=== PATIENT | female | born 1990 | race American Indian/Alaskan Native ===

== ENCOUNTER 2017-06-23 11:37 | Emergency (ER) | payer MEDICAID ==
[2017-06-23 11:45] VITALS: BP 148/82
[2017-06-23] MEDS ORDERED: MOTRIN PO ONE (13:24)
[2017-06-23] MEDS ORDERED: LIDOCAINE VISCOUS 2% PO ONE (13:24)
--- NOTE | 2017-06-23 13:28 | Emergency Department Report ---
ED ENT HPI - General Chief complaint: Sore Throat Stated complaint: SWOLLEN GLANDS Time Seen by Provider: 06/23/17 13:24 Source: patient Mode of arrival: Ambulatory Limitations: No Limitations - History of Present Illness Initial comments: This is a 26-year-old female nontoxic, well nourished in appearance, no acute signs of distress presents to the ED with c/o of sore throat 3 days. Patient denies any facial swelling. She denies any drooling, difficult breathing, fever or chills, nausea, vomiting, chest pain or shortness of breath. Patient denies any allergies or significant past medical history. MD complaint: sore throat -: days(s) (3) Location: throat Severity: mild Severity scale (0 -10): 8 Quality: aching Consistency: constant Improves with: none Worsens with: swallowing Associated Symptoms: pain with swallowing, sore throat. denies: fever, cough, gum swelling, toothache, tinnitus, hearing loss, discharge from ear, rhinorrhea - Related Data Home Medications Medication Instructions Recorded Confirmed Last Taken Ferrous Sulfate 1 tab PO DAILY 03/29/15 03/29/15 03/28/15 18:00 Previous Rx's Medication Instructions Recorded Last Taken Type Ibuprofen [Motrin 800 MG tab] 800 mg PO Q8HR PRN #30 tablet 03/29/15 Unknown Rx oxyCODONE /ACETAMINOPHEN [Percocet 1 tab PO Q4HR #30 tab 03/29/15 Unknown Rx 5/325] Amoxicillin [Amoxicillin TAB] 875 mg PO BID #20 tablet 06/23/17 Unknown Rx Ibuprofen [Motrin] 600 mg PO Q8H PRN #30 tablet 06/23/17 Unknown Rx Nystas/Diphen/Xyl Visc/Mylanta 15 ml MM Q4H PRN 10 Days ml 06/23/17 Unknown Rx [Magic Mouthwash] Allergies Allergy/AdvReac Type Severity Reaction Status Date / Time No Known Allergies Allergy Verified 03/29/15 09:40 ED Dental HPI - General Chief complaint: Sore Throat Stated complaint: SWOLLEN GLANDS Time Seen by Provider: 06/23/17 13:24 Source: patient Mode of arrival: Ambulatory Limitations: No Limitations - Related Data Home Medications Medication Instructions Recorded Confirmed Last Taken Ferrous Sulfate 1 tab PO DAILY 03/29/15 03/29/15 03/28/15 18:00 Previous Rx's Medication Instructions Recorded Last Taken Type Ibuprofen [Motrin 800 MG tab] 800 mg PO Q8HR PRN #30 tablet 03/29/15 Unknown Rx oxyCODONE /ACETAMINOPHEN [Percocet 1 tab PO Q4HR #30 tab 03/29/15 Unknown Rx 5/325] Amoxicillin [Amoxicillin TAB] 875 mg PO BID #20 tablet 06/23/17 Unknown Rx Ibuprofen [Motrin] 600 mg PO Q8H PRN #30 tablet 06/23/17 Unknown Rx Nystas/Diphen/Xyl Visc/Mylanta 15 ml MM Q4H PRN 10 Days ml 06/23/17 Unknown Rx [Magic Mouthwash] Allergies Allergy/AdvReac Type Severity Reaction Status Date / Time No Known Allergies Allergy Verified 03/29/15 09:40 ED Review of Systems ROS: Stated complaint: SWOLLEN GLANDS Other details as noted in HPI Constitutional: denies: chills, fever Eyes: denies: eye pain, eye discharge, vision change ENT: throat pain. denies: ear pain Respiratory: denies: cough, shortness of breath, wheezing Cardiovascular: denies: chest pain, palpitations Endocrine: no symptoms reported Gastrointestinal: denies: abdominal pain, nausea, diarrhea Genitourinary: denies: urgency, dysuria, discharge Musculoskeletal: denies: back pain, joint swelling, arthralgia Skin: denies: rash, lesions Neurological: denies: headache, weakness, paresthesias Psychiatric: denies: anxiety, depression Hematological/Lymphatic: denies: easy bleeding, easy bruising ED Past Medical Hx - Past Medical History Previous Medical History?: Yes Hx Hypertension: No Hx Congestive Heart Failure: No Hx Diabetes: No Hx Deep Vein Thrombosis: No Hx Renal Disease: No Hx Sickle Cell Disease: No Hx Seizures: No Hx Asthma: No Hx COPD: No Hx HIV: No Additional medical history: childbirth - Surgical History Past Surgical History?: Yes Additional Surgical History: - Social History Smoking Status: Never Smoker Substance Use Type: Non Opiate Pain, Other - Medications Home Medications: Home Medications Medication Instructions Recorded Confirmed Last Taken Type Ferrous Sulfate 1 tab PO DAILY 03/29/15 03/29/15 03/28/15 18:00 History Ibuprofen [Motrin 800 MG tab] 800 mg PO Q8HR PRN #30 tablet 03/29/15 Unknown Rx oxyCODONE /ACETAMINOPHEN [Percocet 1 tab PO Q4HR #30 tab 03/29/15 Unknown Rx 5/325] Amoxicillin [Amoxicillin TAB] 875 mg PO BID #20 tablet 06/23/17 Unknown Rx Ibuprofen [Motrin] 600 mg PO Q8H PRN #30 tablet 06/23/17 Unknown Rx Nystas/Diphen/Xyl Visc/Mylanta 15 ml MM Q4H PRN 10 Days ml 06/23/17 Unknown Rx [Magic Mouthwash] ED Physical Exam - General Limitations: No Limitations General appearance: alert, in no apparent distress - Head Head exam: Present: atraumatic, normocephalic - Eye Eye exam: Present: normal appearance Pupils: Present: normal accommodation - ENT ENT exam: Present: mucous membranes moist, TM's normal bilaterally, normal external ear exam - Expanded ENT Exam Expanded Ear exam: Present: normal external inspection Mouth exam: Present: normal external inspection, tongue normal. Absent: drooling, trismus, muffled voice, tongue elevation, laceration Teeth exam: Present: normal inspection Throat exam: Positive: tonsillar erythema, tonsillomegaly (2+), other (Uvula midline. No abscess or swelling noted. ). Negative: tonsillar exudate, R peritonsillar mass, L peritonsillar mass - Neck Neck exam: Present: normal inspection, full ROM, lymphadenopathy (bilateral tonsillar). Absent: tenderness, meningismus, thyromegaly - Respiratory Respiratory exam: Present: normal lung sounds bilaterally. Absent: respiratory distress, wheezes, rales, rhonchi, stridor, chest wall tenderness, accessory muscle use, decreased breath sounds, prolonged expiratory - Cardiovascular Cardiovascular Exam: Present: regular rate, normal rhythm, normal heart sounds. Absent: bradycardia, tachycardia, irregular rhythm, systolic murmur, diastolic murmur, rubs, gallop - GI/Abdominal GI/Abdominal exam: Present: soft, normal bowel sounds - Extremities Exam Extremities exam: Present: normal inspection, full ROM, normal capillary refill - Back Exam Back exam: Present: normal inspection, full ROM - Neurological Exam Neurological exam: Present: alert, oriented X3, normal gait - Psychiatric Psychiatric exam: Present: normal affect, normal mood - Skin Skin exam: Present: warm, dry, intact, normal color. Absent: rash ED Course Vital Signs 06/23/17 11:42 Temperature 98.2 F Pulse Rate 82 Respiratory 18 Rate Blood Pressure 148/82 O2 Sat by Pulse 99 Oximetry - Reevaluation(s) Reevaluation #1: 06/23/17 13:26 Patient is speaking in full sentences with no signs of distress noted. Critical care attestation.: If time is entered above; I have spent that time in minutes in the direct care of this critically ill patient, excluding procedure time. ED Disposition Clinical Impression: Tonsillitis Pharyngitis Qualifiers: Pharyngitis/tonsillitis etiology: unspecified etiology Qualified Code(s): J02.9 - Acute pharyngitis, unspecified Disposition: - TO HOME OR SELFCARE Is pt being admited?: No Does the pt Need Aspirin: No Condition: Stable Instructions: Tonsillitis (ED), Pharyngitis (ED) Additional Instructions: Follow-up with a primary care doctor in 3-5 days or if symptoms worsen and continue return to emergency room as soon as possible. Prescriptions: Amoxicillin [Amoxicillin TAB] 875 mg PO BID #20 tablet Ibuprofen [Motrin] 600 mg PO Q8H PRN #30 tablet PRN Reason: Pain Nystas/Diphen/Xyl Visc/Mylanta [Magic Mouthwash] 15 ml MM Q4H PRN 10 Days ml PRN Reason: Sore Throat Referrals: PRIMARY CAREMD [Primary Care Provider] - 3-5 Days RAHEL BARLOW MD [Staff Physician] - 3-5 Days [facility] [Outside] - 3-5 Days [facility] [Outside] - 3-5 Days Forms: Work/School Release Form(ED)
--- NOTE | 2017-06-23 13:50 | Emergency Department Report ---
Chief Complaint: Sore Throat Stated Complaint: SWOLLEN GLANDS Time Seen by Provider: 06/23/17 13:24 - HPI History of Present Illness: The patient is 26-year-old female who presents for evaluation of sore throat. The patient reports sore throat for the past 4 days, sore stated in quality, moderate severity, exacerbated with swallowing. The patient denies dyspnea, neck stiffness, dysphagia, stridor, drooling, difficulty tolerating secretions, dysphonia, hoarseness of voice, abdominal pain. - Exam Vital Signs: Vital Signs 06/23/17 11:42 Temperature 98.2 F Pulse Rate 82 Respiratory 18 Rate Blood Pressure 148/82 O2 Sat by Pulse 99 Oximetry MSE screening note: Focused history and physical exam performed. Due to findings the following was ordered: ED Disposition for MSE Clinical Impression: Tonsillitis Pharyngitis Qualifiers: Pharyngitis/tonsillitis etiology: unspecified etiology Qualified Code(s): J02.9 - Acute pharyngitis, unspecified Disposition: TO HOME OR SELFCARE Condition: Stable Instructions: Pharyngitis (ED), Tonsillitis (ED) Additional Instructions: Follow-up with a primary care doctor in 3-5 days or if symptoms worsen and continue return to emergency room as soon as possible. Prescriptions: Amoxicillin [Amoxicillin TAB] 875 mg PO BID #20 tablet Ibuprofen [Motrin] 600 mg PO Q8H PRN #30 tablet PRN Reason: Pain Nystas/Diphen/Xyl Visc/Mylanta [Magic Mouthwash] 15 ml MM Q4H PRN 10 Days ml PRN Reason: Sore Throat Referrals: [facility] [Outside] - 3-5 Days [facility] [Outside] - 3-5 Days PRIMARY CAREMD [Primary Care Provider] - 3-5 Days RAHEL BARLOW MD [Staff Physician] - 3-5 Days Forms: Work/School Release Form(ED)
== END 2017-06-23 13:47 | disposition home or self-care (01) ==
LOC: ED 11:37
DX: J03.90 Acute tonsillitis, unspecified (principal)
CPT/HCPCS: 99282

== ENCOUNTER 2018-07-20 09:13 | Inpatient (IN) | payer MEDICAID ==
[2018-07-20] MEDS ORDERED: LACTATED RINGERS 1,000 ML ONE ×2 (09:35→09:55)
[2018-07-20 10:12] LABS: Basophils % (Auto) 0.4 % (0.0-1.8); Eosinophils % (Auto) 0.4 % (0.0-4.3); Hematocrit 37.1 % (30.3-42.9); Hemoglobin 12.6 gm/dl (10.1-14.3); Lymphocytes # (Auto) 1.8 K/mm3 (1.2-5.4); Lymphocytes % (Auto) 20.7 % (13.4-35.0); Mean Corpuscular HGB Conc 34 % (30-34); Mean Corpuscular Volume 89 fl (79-97); Monocytes # (Auto) 0.5 K/mm3 (0.0-0.8); Monocytes % (Auto) 5.7 % (0.0-7.3); Platelet Count 164 K/mm3 (140-440); Red Blood Count 4.19 M/mm3 (3.65-5.03)
[2018-07-20] MEDS ORDERED: ANCEF/STERILE WATER 2 GM/20 ML 2 GM/20 ML SYRINGE IV ONE ×2 (10:26→15:11)
[2018-07-20] MEDS ORDERED: PEPCID IV NR (10:30)
[2018-07-20] MEDS ORDERED: BICITRA PO NR (10:30)
[2018-07-20] MEDS ORDERED: REGLAN IV NR (10:30)
--- NOTE | 2018-07-20 10:46 | Anesthesia Day of Surgery ---
Anesthesia Day of Surgery - Day of Surgery Patient Examined: Yes Patient H&P Reviewed: Yes Patient is NPO: Yes Beta Blockers: No Cardiac Clearance: No Pulmonary Clearance: No Fernando's Test: N/A
--- NOTE | 2018-07-20 10:46 | Anesthesia Consultation ---
Anesthesia Consult and Med Hx - Airway Anesthetic Teeth Evaluation: Good ROM Head & Neck: Adequate Mental/Hyoid Distance: Adequate Mallampati Class: Class II Intubation Access Assessment: Probably Good - Pulmonary Exam CTA: Yes - Cardiac Exam Cardiac Exam: RRR - Pre-Operative Health Status ASA Pre-Surgery Classification: ASA2 Proposed Anesthetic Plan: Epidural - Pulmonary Hx Asthma: No COPD: No Hx Pneumonia: No - Cardiovascular System Hx Hypertension: (GHTN this ) - Central Nervous System Hx Seizures: No Hx Psychiatric Problems: No - Endocrine Hx Renal Disease: No Hx End Stage Renal Disease: No Hx Hypothyroidism: No Hx Hyperthyroidism: No - Hematic Hx Anemia: Yes Hx Sickle Cell Disease: No - Other Systems Hx Alcohol Use: No
[2018-07-20] MEDS ORDERED: PHENERGAN PR PRN ×2 (10:47→13:05)
[2018-07-20] MEDS ORDERED: NARCAN 0.4 MG/1 ML IV PRN ×2 (10:47→13:05)
[2018-07-20] MEDS ORDERED: DILAUDID IV PRN (10:47)
[2018-07-20] MEDS ORDERED: PHENERGAN PO PRN (10:47)
[2018-07-20] MEDS ORDERED: SODIUM CHLORIDE FLUSH SYRINGE 10 ML IV NR (11:00)
[2018-07-20] MEDS ORDERED: LACTATED RINGERS 1,000 ML IV SCH (11:00)
[2018-07-20] MEDS ORDERED: PITOCin/NS 20 UNIT/1000ML DRIP 20 UNITS/1,000 ML BAG IV SCH ×2 (11:00→14:00)
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
[2018-07-20] MEDS ORDERED: NEO SYNEPHRINE/NS Syringe(OR USE) IV ONE (11:23)
[2018-07-20] MEDS ORDERED: SUBLIMAZE ONE (11:23)
[2018-07-20] MEDS ORDERED: ZOFRAN ONE (11:23)
[2018-07-20] MEDS ORDERED: NACL 0.9% IR ONE (12:20)
[2018-07-20] MEDS ORDERED: WATER FOR IRRIG STERILE IR ONE (12:20)
[2018-07-20] MEDS ORDERED: LANSINOH TP PRN (13:05)
[2018-07-20] MEDS ORDERED: MYLICON PO PRN (13:05)
[2018-07-20] MEDS ORDERED: TYLENOL PO PRN (13:05)
[2018-07-20] MEDS ORDERED: SENOKOT PO PRN (13:05)
[2018-07-20] MEDS ORDERED: ANUCORT-HC PR PRN (13:05)
[2018-07-20] MEDS ORDERED: TUCKS PAD TP PRN (13:05)
[2018-07-20] MEDS ORDERED: MORPHINE IV PRN ×2 (13:05)
[2018-07-20] MEDS ORDERED: MILK OF MAGNESIA PO PRN (13:05)
[2018-07-20] MEDS ORDERED: ZOFRAN IV PRN (13:05)
--- NOTE | 2018-07-20 13:10 | Procedure Note ---
OB Delivery Note - Delivery Date of Delivery: 07/20/18 Surgeon: DENAE IBARRA Estimated blood loss: other (600cc) - Section Preop diagnosis: repeat Postop diagnosis: same section procedure: repeat low transverse, bilateral tubal ligation Disposition: PACU Complications: none Narrative: see op note - Infant A at 1 minute: 8 at 5 minutes: 9 Infant Gender: Female (7 pounds 11 oz)
--- NOTE | 2018-07-20 13:20 | Operative Report ---
Operative Report Operative Report: Date: 07/20/18 PRE OP : 1. Repeat low segment transverse section. 2. Desires permanent sterilization 3. IUP 39 weeks POST OP: 1-3 jazmine Surgeon: Dr. Jackelyn Card Anesthesia : Spinal OPERATION: Repeat low transverse section/ Salpingectomy FLUIDS: 2000 mL lactated Ringer. ESTIMATED BLOOD LOSS: 600 mL. URINE OUTPUT: 100 mL, clear and yellow. DESCRIPTION OF OPERATION: The patient was identified and taken to the operating room. Appropriate anesthesia was administered. The patient was placed in the dorsal supine position with a leftward tilt and prepped and draped in the usual sterile fashion. Following that, a low Pfannenstiel skin incision was made with a #10 scalpel. This incision was carried down to the underlying layer of fascia with the scalpel. The fascia was then nicked in the midline with the scalpel. This fascial incision was then extended laterally with the Lam scissors and pickups with teeth. Following that, the superior aspect of the fascial incision was grasped with straight Rosalva clamps x2, tented up from the rectus muscles below and dissected away sharply with the scalpel and Lam scissors. This was repeated similarly to the inferior aspect of the fascial incision. Following that, the peritoneum was identified below, grasped with hemostat x2, and entered sharply with Metzenbaum scissors. After appropriate visualization of the bowel and bladder, the peritoneal incision was extended superiorly and inferiorly. The bladder blade was then placed inferiorly and the vesicouterine peritoneum tented up with the smooth pickups, incised with the Metzenbaum scissors, and this incision was extended laterally. Following that, the bladder blade was replaced deflecting the bladder anteriorly and inferiorly. The #10 scalpel was taken in hand again, and a 3-cm low transverse area incision was then made. This incision was then extended laterally. Following that, the infants vertex was mobilized and delivered through the incision in a direct OP position. The infants nasopharynx was suctioned with the bulb syringe and then the rest of the was delivered along with fundal pressure. Following that, the infants cord was clamped and cut and the was handed off to the awaiting pediatricians. Following that, the placenta was spontaneously expressed. The uterus was then exteriorized and cleared of all clots and debris. The uterine incision was repaired with #1 chromic in a running-locking fashion. The uterus was then returned to the abdominal cavity, and the abdominal cavity was cleared of all clots and debris. Attention was now focused to the tubes, and the tubes were elevated and ligasure used to remove left and right tubes. Excellent hemostasis noted. Small portion of fimbrated on the left remain secondary to dense adhesions. The uterus was then delivered back in the abdominal cavity and tube inspected and found to be still fine after the tubal ligation. The pelvis was irrigated and small bleeding points were cauterized. Lap and instrument counts were correct. The muscle was reapproximated in the midline with interrupted #2-0 Vicryl suture. The fascia was then closed with #0 Vicryl suture on inferolateral aspect of the incision to the midline and other side. Subcutaneous tissue was found to be dry, and the skin was then closed with sherin. The patient tolerated the procedure well and was transferred to recovery in satisfactory condition. The uterine incision and the pelvic cavity were reinspected and excellent hemostasis was noted overall. The fascial incision was reapproximated with #0 Vicryl in a running fashion x2. Following that, the skin was reapproximated with sherin. The instrument, needle, and sponge counts were correct x2.
--- NOTE | 2018-07-20 13:30 | Post Anesthesia Evaluation ---
- Post Anesthesia Evaluation Patient Participated: Yes Airway Patent: Yes Stable Respiratory Function: Yes Nausea/Vomiting: No Temp > 96.8F: Yes Pain Manageable: Yes Adequeate Hydration: Yes Anesthesia Complications: No Block Receding Appropriately: Yes Patient on Ventilator: No
[2018-07-20] MEDS ORDERED: D5LR 1,000 ML IV SCH (14:00)
[2018-07-20] MEDS ORDERED: SODIUM CHLORIDE FLUSH SYRINGE 10 ML IV SCH (14:00)
[2018-07-20] MEDS: TORADOL IV PRN (17:04)
[2018-07-21 00:32] LABS: Hemoglobin 10.3 gm/dl (10.1-14.3)
[2018-07-21] MEDS: TORADOL IV PRN (00:40)
[2018-07-21] MEDS ORDERED: BOOSTRIX IM ONE (06:00)
[2018-07-21] MEDS: IBUPROFEN PO PRN ×3 (09:17→21:56)
[2018-07-21] MEDS: PRENATAL VITAMIN PO SCH (09:17)
[2018-07-21] MEDS: FEOSOL PO SCH (09:17)
[2018-07-21] MEDS: NORCO 5/325 PO PRN ×2 (09:27→16:30)
--- NOTE | 2018-07-21 12:23 | Progress Note ---
Assessment and Plan - Patient Problems (1) delivery delivered Current Visit: No Status: Acute Plan to address problem: routine postop care Subjective - Subjective Date of service: 07/21/18 Interval history: Patient is tolerating regular diet and voiding. Pain well controlled. No complaints Patient reports: appetite normal, voiding normally, pain well controlled : doing well Objective - Vital Signs Latest vital signs: Vital Signs Temp Pulse Resp BP Pulse Ox 07/21/18 12:16 98.7 F 89 20 135/74 97 07/21/18 07:33 99.0 F 94 H 20 140/82 98 07/21/18 05:11 98.7 F 99 H 18 132/75 93 07/21/18 00:31 99.0 F 97 H 18 134/86 96 07/20/18 20:26 20 07/20/18 20:03 98.7 F 84 18 128/82 98 07/20/18 16:08 97.7 F 71 24 104/49 100 07/20/18 14:30 97.8 F 77 18 120/69 100 07/20/18 14:15 76 18 112/67 100 07/20/18 14:00 66 18 107/63 100 07/20/18 13:45 81 17 109/69 100 07/20/18 13:40 67 16 105/56 100 07/20/18 13:35 71 15 112/72 100 07/20/18 13:30 97.3 F L 73 14 104/58 100 Intake and Output 07/20/18 07/21/18 07/21/18 22:59 06:59 14:59 Intake Total 600 1360 Output Total 1050 Balance -450 1360 Intake: IV 1000 D5lr 1,000 ml @ 125 mls/ 1000 hr IV DIRECT [facility] Rx#: [id number] Oral 360 360 Intake, Free Water 240 Output: Urine 1050 Indwelling Catheter 500 Void 550 Other: Total, Intake Amount 360 360 Total, Output Amount 550 # Voids Indwelling Catheter 450 Void 1 Estimated Blood Loss 600 - Exam Abdomen: Present: normal appearance, soft Incision: Present: dressed
[2018-07-21] MEDS ORDERED: M-M-R II VACCINE SUB-Q ONE (13:07)
[2018-07-21] MEDS: PERCOCET 5/325 PO PRN (21:56)
[2018-07-22] MEDS: IBUPROFEN PO PRN ×4 (02:50→22:06)
[2018-07-22] MEDS: PERCOCET 5/325 PO PRN ×3 (02:50→16:31)
[2018-07-22] MEDS: FEOSOL PO SCH (10:27)
[2018-07-22] MEDS: PRENATAL VITAMIN PO SCH (10:27)
--- NOTE | 2018-07-22 11:19 | Progress Note ---
Assessment and Plan A: POD#2 s/p repeat section with bilateral salpingectomy at term Morbid obesity New complaint of headache P: Routine care Repeat vitals Monitor clinically Subjective - Subjective Date of service: 07/22/18 Principal diagnosis: s/p repeat with bilateral salpingectomy, obesity Interval history: Pt reports new onset headache about 15 minutes ago. Otherwise no new events Patient reports: voiding normally, pain well controlled, flatus, ambulating normally : doing well Objective - Vital Signs Latest vital signs: Vital Signs Temp Pulse Resp BP BP Pulse Ox 07/22/18 10:28 19 07/22/18 10:27 19 07/22/18 08:30 98.1 F 90 18 127/72 07/22/18 00:12 98.4 F 79 18 119/54 95 07/21/18 16:14 98.7 F 101 H 18 138/81 99 07/21/18 12:16 98.7 F 89 20 135/74 97 Intake and Output 07/21/18 07/22/18 07/22/18 22:59 06:59 14:59 Intake Total 480 360 320 Balance 480 360 320 Intake: Oral 240 320 Intake, Free Water 240 360 Other: Total, Intake Amount 240 320 Voiding Method Toilet # Voids Indwelling Catheter 1 Void 2 1 - Exam Breasts: Present: deferred Cardiovascular: Present: Regular rate Lungs: Present: Clear to auscultation Abdomen: Present: soft (obese ) Uterus: Present: fundal height at umbilicus Extremities: Present: edema (1+) Incision: Present: intact (with sherin )
[2018-07-22] MEDS: MILK OF MAGNESIA PO SCH ×2 (13:00→18:56)
[2018-07-22] MEDS: NORCO 5/325 PO PRN (22:06)
[2018-07-23] MEDS: MILK OF MAGNESIA PO SCH ×2 (01:13→12:46)
[2018-07-23] MEDS: PERCOCET 5/325 PO PRN ×2 (04:40→09:28)
[2018-07-23] MEDS: IBUPROFEN PO PRN ×2 (04:40→09:27)
--- NOTE | 2018-07-23 08:24 | Progress Note ---
Assessment and Plan A: POD#3 s/p repeat section with bilateral salpingectomy at term Morbid obesity New complaint of headache - now resolved Labile BPs P: PIH panel If no evidence of severe preeclampsia, plan to discharge with follow up next week for BP check and incision check with staple removal Subjective - Subjective Date of service: 07/23/18 Principal diagnosis: s/p repeat with bilateral salpingectomy, obesity Interval history: Headache resolved and has not recurred. Patient reports: appetite normal, voiding normally, pain well controlled, flatus, ambulating normally, no bowel movement [place]: doing well Objective - Vital Signs Latest vital signs: Vital Signs Temp Pulse Resp BP BP Pulse Ox 07/22/18 23:53 98.4 F 71 20 141/77 96 07/22/18 17:31 18 07/22/18 16:31 19 07/22/18 16:25 98 F 86 18 135/72 07/22/18 12:01 98.3 F 83 18 132/80 07/22/18 10:28 19 07/22/18 10:27 19 07/22/18 08:30 98.1 F 90 18 127/72 Intake and Output 07/22/18 07/23/18 07/23/18 22:59 06:59 14:59 Intake Total 320 240 Balance 320 240 Intake: Oral 320 240 Other: Total, Intake Amount 320 240 # Voids Void 1 1 - Exam Breasts: Present: deferred Cardiovascular: Present: Regular rate Lungs: Present: Clear to auscultation Abdomen: Present: soft (obese ) Uterus: Present: fundal height below umbilicus Extremities: Present: edema (trace) Incision: Present: intact (with sherin )
--- NOTE | 2018-07-23 08:25 | Discharge Summary ---
Providers - Providers Date of Admission: 07/20/18 09:13 Date of discharge: 07/23/18 Attending physician: DENAE IBARRA MD Primary care physician: AWA JOHNSON Hospitalization Reason for admission: section Delivery: Procedure: section, repeat low transverse, other (bilateral salpingectomy ) Procedure details: Please see operative report. Other procedures: none complications: none Discharge diagnosis: IUP at term delivered baby: female Hospital course: Patient was admitted for scheduled section and underwent repeat c esarean section with bilateral salpingectomy was she tolerated well. During her postoperative course she had a headache was resolved. She also had labile blood pressures. PIH panel was collected. The patient will follow up in 1 week for blood pressure check and incision check with staple removal. Condition at discharge: Stable Disposition: DC- TO HOME OR SELFCARE - Discharge Diagnoses (1) Term of female Status: Acute (2) Morbid obesity Status: Acute (3) delivery delivered Status: Acute (4) Gestational hypertension Status: Acute Qualifiers: Trimester: third trimester Qualified Code(s): O13.3 - Gestational [-induced] hypertension without significant proteinuria, third trimester Plan - Discharge Medications Prescriptions: Docusate Sodium [Colace] 100 mg PO BID PRN #60 capsule PRN Reason: Constipation Ibuprofen [Motrin] 800 mg PO Q8HR PRN #60 tablet PRN Reason: Pain, Mild (1-3) oxyCODONE /ACETAMINOPHEN [Percocet 5/325] 1 tab PO Q6HR PRN #30 tablet PRN Reason: Pain - Provider Discharge Summary Activity: routine, no sex for 6 weeks, no heavy lifting 4 weeks, no strenuous exercise Diet: routine Instructions: routine Additional instructions: [] Smoking cessation referral if applicable(refer to patient education folder for contact #) [] Refer to [facility] Booklet Call your doctor immediately for: * Fever > 100.5 * Heavy vaginal bleeding ( >1 pad per hour) * Severe persistent headache * Shortness of breath * Reddened, hot, painful area to leg or breast * Drainage or odor from incision. * Keep incision clean and dry at all times and follow doctor's instructions regarding bathing/showering - Follow up plan Follow up: DENAE IBARRA MD [Staff Physician] - 7 Days (blood pressure and incision check )
[2018-07-23] MEDS: FEOSOL PO SCH (09:27)
[2018-07-23] MEDS: PRENATAL VITAMIN PO SCH (09:27)
[2018-07-23 11:09] LABS: Hematocrit 33.4 % (30.3-42.9); Hemoglobin 11.2 gm/dl (10.1-14.3); Mean Corpuscular HGB Conc 33 % (30-34); Mean Corpuscular Volume 91 fl (79-97); Platelet Count 184 K/mm3 (140-440); Red Blood Count 3.68 M/mm3 (3.65-5.03); Red Cell Distribution Width 15.1 % (13.2-15.2)
[2018-07-23 11:30] LABS: Alanine Aminotransferase 17 units/L (7-56); Uric Acid 5.5 mg/dL (3.5-7.6)
[2018-07-23 13:31] VITALS: BP 130/77
== END 2018-07-23 13:00 | disposition home or self-care (01) | DRG 765 ==
LOC: APU 09:13 → OB 14:39
PROVIDERS: ADMIT Obstetrics & Gynecology; ATTEND Obstetrics & Gynecology
PROC: 10D00Z1 Extraction of Products of Conception, Low, Open Approach (ICD-10-PCS; principal; 2018-07-20)
PROC: 0UT70ZZ Resection of Bilateral Fallopian Tubes, Open Approach (ICD-10-PCS; 2018-07-20)
PROC: 0DNW0ZZ Release Peritoneum, Open Approach (ICD-10-PCS; 2018-07-20)
DX: O34.211 Maternal care for low transverse scar from previous cesarean delivery (principal); O13.4 Gestational [pregnancy-induced] hypertension without significant proteinuria, complicating childbirth; O41.8X30 Other specified disorders of amniotic fluid and membranes, third trimester, not applicable or unspecified; O99.214 Obesity complicating childbirth; O99.824 Streptococcus B carrier state complicating childbirth; Z71.3 Dietary counseling and surveillance; Z37.0 Single live birth; E66.01 Morbid (severe) obesity due to excess calories; Z87.440 Personal history of urinary (tract) infections; Z3A.39 39 weeks gestation of pregnancy
CPT/HCPCS: 36415; 82565; 83615; 84450; 84460; 84550; 85014; 85018; 85025; 85027; 86850; 86900; 86901; 88302; G0378; C9250; J0690; J1885; J2270; J2370; J2405; J2590; J2765; J3010; J7120; J7121

== ENCOUNTER 2018-07-24 08:00 | Emergency (ER) | payer MEDICAID ==
[2018-07-24] MEDS ORDERED: FIORICET PO ONE (11:06)
--- NOTE | 2018-07-24 11:13 | Emergency Department Report ---
HPI - General Chief Complaint: Headache Time Seen by Provider: 07/24/18 10:53 - HPI HPI: Room 19 The patient is 27-year-old female presented with a chief complaint of headache. The patient states she is 4 days after receiving an epidural. Roejlio weber states yesterday she developed a diffuse headache that worsens whenever she sits up. Patient admits to nausea and vomiting but denies history of fever. The patient states she is not breast-feeding. Location: Head Duration: [See above] Quality: Pain Severity: Currently 0/10 Modifying factors: [see above] Context: [see above] Mode of transportation: [not driving] ED Past Medical Hx - Past Medical History Hx Hypertension: No ( induced hypertension) Additional medical history: childbirth - Surgical History Additional Surgical History: - Family History Family history: no significant - Social History Smoking Status: Never Smoker Substance Use Type: None (denies illicit drug use) - Medications Home Medications: Home Medications Medication Instructions Recorded Confirmed Last Taken Type Pnv No.95/Ferrous Fum/Folic AC 1 tab PO DAILY 07/20/18 07/20/18 07/19/18 09:00 History [ Vitamins Tablet] Docusate Sodium [Colace] 100 mg PO BID PRN #60 capsule 07/21/18 Unknown Rx Ibuprofen [Motrin] 800 mg PO Q8HR PRN #60 tablet 07/21/18 Unknown Rx oxyCODONE /ACETAMINOPHEN [Percocet 1 tab PO Q6HR PRN #30 tablet 07/21/18 Unknown Rx 5/325] Butalb/Acetamin/Caff 50-325-40 2 tab PO Q8HR PRN #20 tablet 07/24/18 Unknown Rx [Fioricet] ED Review of Systems ROS: Stated complaint: N/V/HEADACHE Other details as noted in HPI Constitutional: denies: fever Eyes: denies: eye pain ENT: denies: throat pain Respiratory: no symptoms reported Cardiovascular: denies: chest pain Endocrine: no symptoms reported Gastrointestinal: nausea, vomiting Genitourinary: denies: dysuria Musculoskeletal: denies: back pain Neurological: headache Physical Exam - Physical Exam Vital Signs: Vital Signs 07/24/18 07/24/18 07/24/18 08:23 08:26 09:20 Temperature 97.5 F L Pulse Rate 74 Respiratory 20 14 Rate Blood Pressure Blood Pressure 136/83 [Left] O2 Sat by Pulse 100 Oximetry 07/24/18 07/24/18 07/24/18 09:25 09:30 09:45 Temperature Pulse Rate 69 84 Respiratory 18 19 14 Rate Blood Pressure 132/85 139/88 Blood Pressure [Left] O2 Sat by Pulse 99 99 99 Oximetry 07/24/18 07/24/18 07/24/18 10:00 10:15 10:30 Temperature Pulse Rate 68 70 70 Respiratory 20 18 21 Rate Blood Pressure 130/77 134/71 134/81 Blood Pressure [Left] O2 Sat by Pulse 99 95 98 Oximetry Physical Exam: GENERAL: The patient is well-developed well-nourished female lying on stretcher not appear to be in acute distress. [] HEENT: Normocephalic. Atraumatic. Extraocular motions are intact. Patient has moist mucous membranes. NECK: Supple. No meningitic signs are noted. Trachea midline CHEST/LUNGS: Clear to auscultation. There is no respiratory distress noted. HEART/CARDIOVASCULAR: Regular. There is no tachycardia. There is no gallop rub or murmur. ABDOMEN: Abdomen is soft, nontender. Patient has normal bowel sounds. There is no abdominal distention. SKIN: There is no rash. There is no edema. There is no diaphoresis. NEURO: The patient is awake, alert, and oriented. The patient is cooperative. The patient has no focal neurologic deficits. The patient has normal speech. Cranial nerves II through XII grossly intact, no drift MUSCULOSKELETAL: There is no evidence of acute injury. ED Course Vital Signs 07/24/18 07/24/18 07/24/18 08:23 08:26 09:20 Temperature 97.5 F L Pulse Rate 74 Respiratory 20 14 Rate Blood Pressure Blood Pressure 136/83 [Left] O2 Sat by Pulse 100 Oximetry 07/24/18 07/24/18 07/24/18 09:25 09:30 09:45 Temperature Pulse Rate 69 84 Respiratory 18 19 14 Rate Blood Pressure 132/85 139/88 Blood Pressure [Left] O2 Sat by Pulse 99 99 99 Oximetry 07/24/18 07/24/18 07/24/18 10:00 10:15 10:30 Temperature Pulse Rate 68 70 70 Respiratory 20 18 21 Rate Blood Pressure 130/77 134/71 134/81 Blood Pressure [Left] O2 Sat by Pulse 99 95 98 Oximetry - Reevaluation(s) Reevaluation #1: 07/24/18 12:03 Patient states she feels improved after Fioricet. Upon standing she states her headache is nearly as severe and she will prefer to go home with prescription for the medication. Strong warnings to return should her headache worsen or should develop a fever. Possibility of blood patch was discussed with the patient. Patient verbalized understanding ED Medical Decision Making - Lab Data Result diagrams: 07/24/18 11:12 07/24/18 11:14 Laboratory Tests 07/24/18 07/24/18 07/24/18 11:12 11:14 11:14 WBC 7.4 RBC 3.79 Hgb 11.4 Hct 34.3 MCV 91 MCH 30 MCHC 33 RDW 14.8 Plt Count 223 Lymph % (Auto) 11.4 L [place] % (Auto) 2.4 Eos % (Auto) 0.2 Baso % (Auto) 0.3 Lymph # 0.8 L [place] # 0.2 Eos # 0.0 Baso # 0.0 Seg Neutrophils % 85.7 H Seg Neutrophils # 6.4 PT 12.5 INR 0.88 APTT 26.9 Sodium 135 L Potassium 3.5 L Chloride 99.0 Carbon Dioxide 22 Anion Gap 18 BUN 5 L Creatinine 0.6 L Estimated GFR > 60 BUN/Creatinine Ratio 8 Glucose 95 Calcium 8.9 - Radiology Data Radiology results: report reviewed (CT head), image reviewed (CT head) [place] [address] Cat Scan Report Signed Patient: JESSICA ROMEO MR#: [id number] : 1990 Acct:[id number] Age/Sex: 27 / F ADM Date: 07/24/18 Loc: ED Attending Dr: Ordering Physician: PRASHANT HERNANDEZ MD Date of Service: 07/24/18 Procedure(s): CT head/brain wo con Accession Number(s): [id number] cc: PRASHANT HERNANDEZ MD CT HEAD WITHOUT CONTRAST INDICATION: Global headache. Patient is 4 days. COMPARISON: None similar. FINDINGS: Noncontrast head CT demonstrates symmetric, normal ventricles. Somewhat prominent/enlarged sulci toward the vertex as on axial images 40-53, though appear normal more inferiorly. No acute infarct, hemorrhage, mass effect or midline shift. No abnormal extra axial fluid collections. Normal posterior fossa with preserved basilar cisterns. Normal imaged eye globes. Clear visualized paranasal sinuses and mastoid air cells. Normal calvarium and scalp. CONCLUSION: No acute intracranial CT abnormality, as described. Thank you for the opportunity to participate in this patient's care. Transcribed By: RS Dictated By: HUE BANUELOS MD Electronically Authenticate d By: HUE BANUELOS MD Signed Date/Time: 07/24/181155 DD/ 52 TD/TT: 07/24/181155 - Differential Diagnosis post-epidural headache, intracranial mass, ICH, headache Critical care attestation.: If time is entered above; I have spent that time in minutes in the direct care of this critically ill patient, excluding procedure time. ED Disposition Clinical Impression: Post lumbar puncture headache Disposition: - TO HOME OR SELFCARE Is pt being admited?: No Does the pt Need Aspirin: No Condition: Stable Additional Instructions: Return to the emergency department immediately should you develop worsening symptoms, fever, inability to tolerate food or liquid or any other concerns. Prescriptions: Butalb/Acetamin/Caff 50-325-40 [Fioricet] 2 tab PO Q8HR PRN #20 tablet PRN Reason: Headache Referrals: CASSIE BROWN MD [Primary Care Provider] - 3-5 Days Time of Disposition: 12:05
[2018-07-24 11:21] LABS: Basophils % (Auto) 0.3 % (0.0-1.8); Eosinophils % (Auto) 0.2 % (0.0-4.3); Hematocrit 34.3 % (30.3-42.9); Hemoglobin 11.4 gm/dl (10.1-14.3); Lymphocytes # (Auto) 0.8 K/mm3 (1.2-5.4); Lymphocytes % (Auto) 11.4 % (13.4-35.0); Mean Corpuscular HGB Conc 33 % (30-34); Mean Corpuscular Volume 91 fl (79-97); Monocytes # (Auto) 0.2 K/mm3 (0.0-0.8); Monocytes % (Auto) 2.4 % (0.0-7.3); Platelet Count 223 K/mm3 (140-440); Red Blood Count 3.79 M/mm3 (3.65-5.03); Red Cell Distribution Width 14.8 % (13.2-15.2)
[2018-07-24 11:33] LABS: INR 0.88 (0.87-1.13)
[2018-07-24 11:34] LABS: Partial Thromboplastin Time 26.9 Sec. (24.2-36.6)
[2018-07-24 11:41] LABS: BUN/Creatinine Ratio 8; Blood Urea Nitrogen 5 mg/dL (7-17); Calcium 8.9 mg/dL (8.4-10.2); Hemolysis Index 0
--- NOTE | 2018-07-24 11:57 | Cat Scan Report ---
CT HEAD WITHOUT CONTRAST INDICATION: Global headache. Patient is 4 days. COMPARISON: None similar. FINDINGS: Noncontrast head CT demonstrates symmetric, normal ventricles. Somewhat prominent/enlarged sulci toward the vertex as on axial images 40-53, though appear normal more inferiorly. No acute infarct, hemorrhage, mass effect or midline shift. No abnormal extra axial fluid collections. Normal posterior fossa with preserved basilar cisterns. Normal imaged eye globes. Clear visualized paranasal sinuses and mastoid air cells. Normal calvarium and scalp. CONCLUSION: No acute intracranial CT abnormality, as described. Thank you for the opportunity to participate in this patient's care.
[2018-07-24 12:50] VITALS: BP 138/82
== END 2018-07-24 12:45 | disposition home or self-care (01) ==
LOC: ED 08:00
DX: G97.1 Other reaction to spinal and lumbar puncture (principal); R11.2 Nausea with vomiting, unspecified; Y84.4 Aspiration of fluid as the cause of abnormal reaction of the patient, or of later complication, without mention of misadventure at the time of the procedure; Y92.89 Other specified places as the place of occurrence of the external cause
CPT/HCPCS: 36415; 70450; 80048; 85025; 85610; 85730

== ENCOUNTER 2018-08-20 09:32 | Outpatient (CLI) | payer MEDICAID ==
[2018-08-20] MEDS ORDERED: XYLOCAINE TOPICAL 4% TP ONE (10:15)
== END 2018-08-20 09:33 | disposition home or self-care (01) ==
LOC: WOUND 09:32
PROVIDERS: ATTEND Surgery
DX: O90.89 Other complications of the puerperium, not elsewhere classified (principal); S31.104D Unspecified open wound of abdominal wall, left lower quadrant without penetration into peritoneal cavity, subsequent encounter; S31.103D Unspecified open wound of abdominal wall, right lower quadrant without penetration into peritoneal cavity, subsequent encounter; L92.9 Granulomatous disorder of the skin and subcutaneous tissue, unspecified; X58.XXXD Exposure to other specified factors, subsequent encounter

== ENCOUNTER 2020-02-07 11:44 | Emergency (ER) | payer MEDICAID ==
[2020-02-07 12:14] VITALS: BP 131/76
--- NOTE | 2020-02-07 12:35 | Emergency Department Report ---
Blank Doc - Documentation Documentation: 29-year-old female that presents with vaginal discharge and urinary symptoms. This initial assessment/diagnostic orders/clinical plan/treatment(s) is/are subject to change based on patient's health status, clinical progression and re- assessment by fellow clinical providers in the ED. Further treatment and workup at subsequent clinical providers discretion. Patient/guardians urged not to elope from the ED as their condition may be serious if not clinically assessed and managed. Initial orders include: 1- Patient sent to [facility] for further evaluation and treatment 2- UA
[2020-02-07 13:56] LABS: Bilirubin,Urine NEG (Negative); Blood,Urine NEG (Negative); Color,Urine Yellow (Yellow); Protein,Urine <15 mg/dL mg/dL (Negative); Urobilinogen,Urine < 2.0 mg/dL (<2.0); WBC,Urine < 1.0 /HPF (0.0-6.0)
[2020-02-07 14:04] LABS: HCG Qualitative,Urine Negative (Negative)
== END 2020-02-07 16:00 | disposition left against medical advice (07) ==
LOC: ED 11:44
DX: N89.8 Other specified noninflammatory disorders of vagina (principal); Z53.21 Procedure and treatment not carried out due to patient leaving prior to being seen by health care provider
CPT/HCPCS: 81001; 81025

== ENCOUNTER 2021-04-19 07:00 | Emergency (ER) | payer MEDICAID ==
[2021-04-19 07:36] VITALS: BP 140/82
[2021-04-19 08:46] LABS: Bacteria,Urine 1+ /HPF (Negative); Bilirubin,Urine NEG (Negative); Blood,Urine NEG (Negative); Color,Urine Yellow (Yellow); Mucus,Urine FEW /HPF; Protein,Urine <15 mg/dL mg/dL (Negative); Urobilinogen,Urine < 2.0 mg/dL (<2.0)
== END 2021-04-19 10:00 | disposition left against medical advice (07) ==
LOC: ED 07:00
DX: B37.9 Candidiasis, unspecified (principal); Z53.21 Procedure and treatment not carried out due to patient leaving prior to being seen by health care provider
CPT/HCPCS: 81001; 87086